=== PATIENT | female | born 1990 | race Caucasian/White ===

== ENCOUNTER 2016-12-24 19:35 | Emergency (ER) | payer MEDICAID ==
[~2016-12-24] VITALS: Ht 167.6 cm; Wt 72.3 kg
[2016-12-24 19:47] VITALS: BP 123/80
[2016-12-24] MEDS ORDERED: MAALOX/HYOSCYAMINE/LIDOCAINE 45 ML BOTTLE PO ONE (20:30)
[2016-12-24] MEDS ORDERED: MAALOX/HYOSCYAMINE/LIDOCAINE 45 ML BOTTLE ONE (20:31)
== END 2016-12-24 21:22 | disposition home or self-care (01) ==
LOC: ED 21:20
DX: R07.89 Other chest pain (principal); K22.4 Dyskinesia of esophagus; G43.909 Migraine, unspecified, not intractable, without status migrainosus
CPT/HCPCS: 71020; 93005; 99284

== ENCOUNTER 2018-02-07 20:12 | Emergency (ER) | payer MEDICAID ==
[~2018-02-07] VITALS: Ht 167.6 cm; Wt 71.2 kg
[2018-02-07 20:46] LABS: BASOPHILS # (AUTO) 0.03 x10^3/uL (0-0.1); BASOPHILS % (AUTO) 0 % (0-1); EOSINOPHILS # (AUTO) 0.24 x10^3/uL (0-0.4); EOSINOPHILS % (AUTO) 2 % (1-7); LYMPHOCYTES % (AUTO) 25 % (22-44); MD NO; MEAN CORPUSCULAR HEMOGLOBIN 31.4 pg (27.0-34.8); MEAN CORPUSCULAR VOLUME 92.5 fL (80-100); MEAN PLATELET VOLUME 8.4 fL (7.4-10.4); MONOCYTES # (AUTO) 0.57 x10^3/uL (0.2-0.8); MONOCYTES % (AUTO) 5 % (2-9); NEUTROPHILS # (AUTO) 7.51 x10^3/uL (1.8-6.8); NEUTROPHILS % (AUTO) 68 % (42-75); PLATELET COUNT 399 x10^3/uL (130-400); RED BLOOD COUNT 4.55 x10^6/uL (3.82-5.3); RED CELL DISTRIBUTION WIDTH 14.7 % (9.6-15.2)
[2018-02-07 20:57] LABS: ANION GAP 7 mmol/L (5-15); CALCIUM 8.7 mg/dL (8.5-10.1); CHLORIDE 107 mmol/L (98-107); CREATININE 0.81 mg/dL (0.55-1.02)
[2018-02-07 21:01] LABS: TROPONIN I < 0.015 ng/mL (0.000-0.045)
[2018-02-07 22:27] VITALS: BP 125/81
== END 2018-02-07 23:19 | disposition home or self-care (01) ==
LOC: ED 23:02
DX: R07.89 Other chest pain (principal); G43.909 Migraine, unspecified, not intractable, without status migrainosus; Z87.891 Personal history of nicotine dependence
CPT/HCPCS: 36415; 71045; 80048; 82040; 84484; 85025; 93005; 99285

== ENCOUNTER 2018-04-06 11:49 | Emergency (ER) | payer MEDICAID ==
[~2018-04-06] VITALS: Ht 167.6 cm; Wt 70.5 kg
[2018-04-06 12:42] LABS: BASOPHILS # (AUTO) 0.03 x10^3/uL (0-0.1); BASOPHILS % (AUTO) 0 % (0-1); EOSINOPHILS # (AUTO) 0.14 x10^3/uL (0-0.4); EOSINOPHILS % (AUTO) 2 % (1-7); LYMPHOCYTES # (AUTO) 1.81 x10^3/uL (1-3.4); LYMPHOCYTES % (AUTO) 25 % (22-44); MD NO; MEAN CORPUSCULAR HEMOGLOBIN 30.6 pg (27.0-34.8); MEAN CORPUSCULAR HGB CONC 32.9 g/dL (32.4-35.8); MEAN PLATELET VOLUME 8.3 fL (7.4-10.4); MONOCYTES # (AUTO) 0.45 x10^3/uL (0.2-0.8); MONOCYTES % (AUTO) 6 % (2-9); NEUTROPHILS # (AUTO) 4.95 x10^3/uL (1.8-6.8); NEUTROPHILS % (AUTO) 67 % (42-75); PLATELET COUNT 345 x10^3/uL (130-400); RED BLOOD COUNT 4.28 x10^6/uL (3.82-5.3); RED CELL DISTRIBUTION WIDTH 13.8 % (9.6-15.2)
[2018-04-06 12:54] LABS: ALBUMIN 3.8 g/dL (3.4-5.0); ANION GAP 6 mmol/L (5-15); CALCIUM 8.7 mg/dL (8.5-10.1); CHLORIDE 108 mmol/L (98-107); CREATININE 0.71 mg/dL (0.55-1.02)
[2018-04-06 12:58] LABS: TROPONIN I < 0.015 ng/mL (0.000-0.045)
[2018-04-06 13:20] LABS: MICROSCOPIC INDICATED
[2018-04-06 13:32] LABS: CULTURE INDICATED? YES
[2018-04-06 13:49] LABS: FREE T4 (FREE THYROXINE) 0.9 ng/dL (0.76-1.46); THYROID STIMULATING HORMONE 0.463 mIU/L (0.358-3.740)
[2018-04-06 14:49] VITALS: BP 121/74
== END 2018-04-06 14:52 | disposition home or self-care (01) ==
LOC: ED 13:34
DX: N30.00 Acute cystitis without hematuria (principal); H69.90 Unspecified Eustachian tube disorder, unspecified ear; G43.909 Migraine, unspecified, not intractable, without status migrainosus; F32.9 Major depressive disorder, single episode, unspecified
CPT/HCPCS: 36415; 71046; 80048; 81001; 82040; 84439; 84443; 84484; 84703; 85025; 87086; 93005; 99285

== ENCOUNTER 2019-11-18 17:17 | Emergency (ER) | payer MEDICAID ==
[~2019-11-18] VITALS: Ht 170.2 cm; Wt 71.1 kg
[2019-11-18 17:35] VITALS: BP 135/86
--- NOTE | 2019-11-18 18:05 | NUR ---
PT HERE WITH C/O DENTAL PAIN X 1 DAY, STATES SHE NEEDS A PRESCRIPTION FOR MOTRIN SO HER INSURANCE WILL COVER IT.
--- NOTE | 2019-11-18 18:07 | NUR ---
Patient/Caregiver given discharge instructions and they have confirmed that they understand the instructions. Patient ambulatory with steady gait.
== END 2019-11-18 18:12 | disposition home or self-care (01) ==
LOC: ED 18:06
DX: K02.9 Dental caries, unspecified (principal); K08.89 Other specified disorders of teeth and supporting structures; F17.210 Nicotine dependence, cigarettes, uncomplicated; Z72.9 Problem related to lifestyle, unspecified
CPT/HCPCS: 99283

== ENCOUNTER 2019-12-02 20:34 | Emergency (ER) | payer MEDICAID ==
[~2019-12-02] VITALS: Ht 167.6 cm; Wt 73.1 kg
[2019-12-02 20:38] VITALS: BP 133/73
--- NOTE | 2019-12-02 21:13 | NUR ---
pt called back to room from lobby
--- NOTE | 2019-12-02 21:17 | NUR ---
PT IN RESTROOM
--- NOTE | 2019-12-02 21:21 | NUR ---
THIS IS A 29Y F THAT COMES IN FOR ANAL PAIN STS IT STARTED "LIKE 3 DAYS AGO AND NOW THERES A LITTLE THING HANGING ITS BEEN THERE FOR 4 MONTHS." PT STS " DISCOMFORT WHEN I WIPE, PT STS MAYBE GENITAL WARTS BUT MAYBE NOT."
--- NOTE | 2019-12-02 21:21 | NUR ---
MD AT BEDSIDE TO ASSESS PT
--- NOTE | 2019-12-02 21:57 | NUR ---
Patient/Caregiver given discharge instructions and they have confirmed that they understand the instructions. Patient ambulatory with steady gait.
== END 2019-12-02 22:03 | disposition home or self-care (01) ==
LOC: ED 21:35
DX: K64.4 Residual hemorrhoidal skin tags (principal); M79.7 Fibromyalgia; F17.200 Nicotine dependence, unspecified, uncomplicated
CPT/HCPCS: 99282

== ENCOUNTER 2020-06-10 13:22 | Emergency (ER) | payer MEDICAID ==
[~2020-06-10] VITALS: Ht 175.3 cm; Wt 69.4 kg
[2020-06-10 13:33] VITALS: BP 128/69
--- NOTE | 2020-06-10 13:56 | NUR ---
ER PA AT BS. Addendum: 06/10/20 at 1357 by HBENSON ERP AT BS.
--- NOTE | 2020-06-10 14:28 | NUR ---
D/C INSTRUCTIONS & F/U APPT / REFERRAL PROVIDED TO PT, SHE VERBALIZES UNDERSTANDING. AMBULATED OUT OF ED WITHOUT DIFFICULTY.
== END 2020-06-10 14:28 | disposition home or self-care (01) ==
LOC: ED 14:15
DX: R10.2 Pelvic and perineal pain (principal); F17.200 Nicotine dependence, unspecified, uncomplicated; Z85.41 Personal history of malignant neoplasm of cervix uteri
CPT/HCPCS: 99281

== ENCOUNTER 2021-02-02 12:28 | Emergency (ER) | payer MEDICAID ==
[~2021-02-02] VITALS: Ht 167.6 cm; Wt 70.4 kg
[2021-02-02 12:34] VITALS: BP 128/88
--- NOTE | 2021-02-02 12:45 | NUR ---
SANDRA-Mimi IS AT THE BEDSIDE FOR ASSESSMENT
== END 2021-02-02 13:15 | disposition home or self-care (01) ==
LOC: ED 12:53
DX: L03.114 Cellulitis of left upper limb (principal); F17.210 Nicotine dependence, cigarettes, uncomplicated; G43.109 Migraine with aura, not intractable, without status migrainosus
CPT/HCPCS: 99406